=== PATIENT | female | born 1995 | race Caucasian/White ===

== ENCOUNTER 2022-07-28 17:41 | Emergency (ER) | payer MEDICAID ==
[2022-07-28 18:18] VITALS: BP 135/98; PULSE 70; O2SAT 98
[2022-07-28] MEDS ORDERED: TORAdol 30 mg Injection IM ONE (18:50)
--- NOTE | 2022-07-28 18:52 | ERPHSYRPT ---
- History of Present Illness Time Seen by Provider: 07/28/22 18:52 Source: patient Exam Limitations: no limitations Patient Subjective Stated Complaint: pt here for pain to left hand, she states she smashed in sunday with steel, was seen at [facility] last night and carlos manuelto guillermina ay, was given splint and rx, she states pain is worse and she can not move hand Triage Nursing Assessment: pt alert, walked in, resp easy, crying off and on, has redness and swelling to left. middle finger, no splint to finger, has strong radial pulse. nail beds pink Physician History: Patient presents for pain to left hand, she states she smashed in Sunday with steel, was seen at [place] last night and [facility] today, was given splint a nd abx, she states pain is worse and she can not move hand. Patient reports that her index finger has become more swollen, red, warm and extremely painful. The finger is painful to touch or move. She reports that after the injury there was a small shard of steel stuck in her finger that she removed. Occurred: days ago (2) Method of Injury: other (crush injury) Quality: constant Severity of Pain-Max: severe Severity of Pain-Current: severe Extremities Pain Location: 2nd finger: left Modifying Factors: Improves With: nothing. Worsens With: movement Associated Symptoms: none Allergies/Adverse Reactions: ketamine Allergy (Verified 07/28/22 17:53) Hx Tetanus, Diphtheria Vaccination/Date Given: Yes Hx Influenza Vaccination/Date Given: No Hx Pneumococcal Vaccination/Date Given: No Immunizations Up to Date: Yes Travel Risk - International Travel Have you traveled outside of the country in past 3 weeks: No - Coronavirus Screening Are you exhibiting any of the following symptoms?: No - Vaccine Status Have you recieved a Covid-19 vaccination: No - Review of Systems Constitutional: No Symptoms Musculoskeletal: Injury, Joint Redness, Joint Pain, Joint Swelling Skin: Cellulitis Neurological: No Symptoms - Past Medical History Pertinent Past Medical History: Yes History: Other Psycho-Social History: Anxiety, Depression - Past Surgical History Past Surgical History: Yes Neuro Surgical History: Other Gastrointestinal: Appendectomy, Hernia Repair, Other Female Surgical History: Tubal Ligation Other Surgical History: EYE SURGERY - Social History Smoking Status: Current every day smoker Exposure to second hand smoke: Yes Drug Use: none Patient Lives Alone: No - Female History Hx Last Menstrual Period: now Hx Now: No - Nursing Vital Signs Nursing Vital Signs: Initial Vital Signs Pulse Rate 70 07/28/22 17:43 Respiratory Rate 18 07/28/22 17:43 Blood Pressure 135/98 07/28/22 17:43 O2 Sat by Pulse Oximetry 98 07/28/22 17:43 Pain Scale Pain Intensity 5 - Physical Exam General Appearance: severe distress Shoulder Exam: normal inspection, non-tender, no evidence of injury, normal ROM, No pain, No soft tissue tenderness, No swelling Elbow/Forearm Exam: normal inspection, non-tender, no evidence of injury, normal ROM, No pain, No soft tissue tenderness, No swelling Wrist Exam: normal inspection, non-tender, no evidence of injury, normal ROM, No abrasions, No bone tenderness, No deformity, No ecchymosis, No pain, No soft tissue tenderness, No swelling Hand Exam: ecchymosis, limited ROM, soft tissue tenderness (pain w/ flexion, TTP over flexor tendon), stiffness, swelling (2nd digit on left hand) Neuro/Tendon Exam: normal sensation, normal motor functions Mental Status Exam: alert, oriented x 3, cooperative SpO2 Interpretation: normal SpO2: 98 O2 Delivery: Room Air - Course Nursing assessment & vital signs reviewed: Yes - Radiology Exams Left Hand X-ray Interpretation: Interpreted by me, No Fracture, Other (no foreign body) Ordered Tests: Medication Summary Discontinued Medications Generic Name Dose Route Start Last Admin Trade Name Freq PRN Reason Stop Dose Admin Ceftriaxone Sodium/Dextrose 1 g in 50 mls @ 100 mls/hr 07/28/22 19:47 07/28/22 21:35 Rocephin 1 Gm-D5w 50 Ml Bag IV 07/28/22 20:16 Infused STAT STA Infusion Vancomycin HCl 1 gm in 200 mls @ 125 mls/hr 07/28/22 19:50 07/28/22 23:56 Vancomycin 1 Gram/200 Ml Bag IV 07/28/22 21:25 Infused STAT ONE Infusion Ceftriaxone Sodium/Dextrose Confirm 07/28/22 20:24 Rocephin 1 Gm-D5w 50 Ml Bag Administered 07/28/22 20:25 Dose 1 g in 50 mls @ ud IV .STK-MED ONE Vancomycin HCl Confirm 07/28/22 21:56 Vancomycin 1 Gram/200 Ml Bag Administered 07/28/22 21:57 Dose 1 gm in 200 mls @ ud IV .STK-MED ONE Ketorolac Tromethamine 60 mg 07/28/22 18:50 07/28/22 19:07 Ketorolac Tromethamine 30 Mg/Ml Inj IM 07/28/22 18:51 60 mg STAT ONE Administration Ketorolac Tromethamine Confirm 07/28/22 19:06 Ketorolac Tromethamine 30 Mg/Ml Inj Administered 07/28/22 19:07 Dose 60 mg .ROUTE .STK-MED ONE Morphine Sulfate 2 mg 07/28/22 19:51 07/28/22 20:26 Morphine Sulfate 2 Mg/Ml Inj IV 07/28/22 19:52 2 mg STAT ONE Administration Morphine Sulfate Confirm 07/28/22 20:24 Morphine Sulfate 2 Mg/Ml Inj Administered 07/28/22 20:25 Dose 2 mg .ROUTE .STK-MED ONE Morphine Sulfate 2 mg 07/28/22 23:34 07/28/22 23:50 Morphine Sulfate 2 Mg/Ml Inj IV 07/28/22 23:35 2 mg STAT ONE Administration Morphine Sulfate Confirm 07/28/22 23:48 Morphine Sulfate 2 Mg/Ml Inj Administered 07/28/22 23:49 Dose 2 mg .ROUTE .STK-MED ONE Lab/Rad Data: Laboratory Result Diagrams 07/28/22 20:55 07/28/22 20:55 Laboratory Results 07/28/22 07/28/22 07/28/22 Range/Units 20:56 20:55 20:55 WBC 12.7 H (4.0-10.5) x10^3/uL RBC 4.15 (4.1-5.4) x10^6/uL Hgb 11.6 L (12.0-16.0) g/dL Hct 35.2 (35-47) % MCV 84.8 (78-100) fL MCH 28.0 (26-32) pg MCHC 33.0 (32-36) g/dL RDW 13.1 (11.5-14.0) % Plt Count 241 (150-450) x10^3/uL MPV 9.7 (7.5-11.0) fL ESR 36 H (0-20) mm/hr Sodium 136 L (137-145) mmol/L Potassium 3.5 (3.5-5.1) mmol/L Chloride 105 (98-107) mmol/L Carbon Dioxide 22 (22-30) mmol/L Anion Gap 12.6 (5-15) MEQ/L BUN 18 H (7-17) mg/dL Creatinine 0.50 L (0.52-1.04) mg/dL Estimated GFR > 60.0 ML/MIN Glucose 111 H (74-106) mg/dL Lactic Acid 0.8 (0.4-2.0) Calcium 8.3 L (8.4-10.2) mg/dL Total Bilirubin 0.50 (0.2-1.3) mg/dL AST 21 (14-36) U/L ALT 20 (0-35) U/L Alkaline Phosphatase 88 (38-126) U/L Serum Total Protein 6.9 (6.3-8.2) g/dL Albumin 3.8 (3.5-5.0) g/dL - Progress Progress: unchanged Progress Note: Physical exam findings consistent w/ flexor tenosenovitis. There are no local hand surgeons available for surgical evaluation. Due to current bed shortage I discussed options of transfer vs d/c and proceed to ER in [place]. Patient chose to be d/c'd and proceed to ER in [place] for surgical evaluation. Patient was given Vanc/Rocephin in ER as well as Morphine and Toradol for pain control. Counseled pt/family regarding: lab results, diagnosis, need for follow-up, rad results Medical Desision Making - Diagnostic Testing Diagnostic test were ordered, analyzed, and reviewed by me: Yes Radiological Interpretation: Interpreted by me - Risk of complications The pt has a mod risk of morbidity or mortality based on: Need for prescription drug management - Departure Departure Disposition: Home Clinical Impression: Flexor tenosynovitis of finger Condition: Stable Critical Care Time: No Referrals: DOCTOR,NO FAMILY [Primary Care Provider] - Follow up/PCP as directed EUGENE YOON [NON-STAFF PHY W/O PRIVILEGES] - Follow up/PCP as directed Instructions: Tenosynovitis (DC) Additional Instructions: Patient was treated w/ IV Rocephin and Vancomycin in ED for suspected flexor tenosynovitis. There is no available hand surgeon in a a 75 mile radius. Due to current bed situation at hospitals discussed ER to ER transfer vs d/c and travel to ER in [facility] or [place] and patient chose to d/c and proceed to [facility] ER for further evaluation. Patient was given 2mg Morphine prior to d/c to help w/ pain on the way, she will be escorted by her partner.
[2022-07-28] MEDS ORDERED: TORAdol 30 mg Injection ONE (19:06)
[2022-07-28] MEDS ORDERED: ROCEPHIN 1 Gm-D5w 50 ml Bag** 1 G/50 ML IVPB IV STA (19:47)
[2022-07-28] MEDS ORDERED: VANCOMYCIN 1 GRAM/200 ML BAG 1 GM/200 ML PIGGYBACK IV ONE ×2 (19:50→21:56)
[2022-07-28] MEDS ORDERED: MORPHINE SULFATE 2 MG INJ IV ONE ×2 (19:51→23:34)
[2022-07-28] MEDS ORDERED: MORPHINE SULFATE 2 MG INJ ONE ×2 (20:24→23:48)
[2022-07-28] MEDS ORDERED: ROCEPHIN 1 Gm-D5w 50 ml Bag** 1 G/50 ML IVPB IV ONE (20:24)
[2022-07-28 20:58] LABS: Hematocrit 35.2 % (35-47); Hemoglobin 11.6 g/dL (12.0-16.0); Mean Cell Volume 84.8 fL (78-100); Mean Platelet Volume 9.7 fL (7.5-11.0); Platelet Count 241 x10^3/uL (150-450); Red Blood Count 4.15 x10^6/uL (4.1-5.4); Red Cell Distribution Width 13.1 % (11.5-14.0); White Blood Count 12.7 x10^3/uL (4.0-10.5)
[2022-07-28 21:01] LABS: Erythrocyte Sedimentation Rate 36 mm/hr (0-20)
[2022-07-28 21:43] LABS: ALBUMIN 3.8 g/dL (3.5-5.0); ALKALINE PHOSPHATASE 88 U/L (38-126); ANION GAP 12.6 MEQ/L (5-15); BLOOD UREA NITROGEN 18 mg/dL (7-17); CHLORIDE 105 mmol/L (98-107); Calcium 8.3 mg/dL (8.4-10.2); Carbon Dioxide 22 mmol/L (22-30); EST GLOMERULAR FILTRATION RATE > 60.0 ML/MIN; Glucose 111 mg/dL (74-106); Potassium 3.5 mmol/L (3.5-5.1); SGOT/AST 21 U/L (14-36); SGPT/ALT 20 U/L (0-35); SODIUM 136 mmol/L (137-145); Total Protein 6.9 g/dL (6.3-8.2)
--- NOTE | 2022-07-28 21:52 | XRAY ---
Indication: 4th/5th finger pain following injury. Comparison: None 3 view left hand obtained. No bony, articular, or soft tissue abnormalities.
== END 2022-07-29 00:07 | disposition home or self-care (01) ==
LOC: ED 17:41
DX: M65.9 Synovitis and tenosynovitis, unspecified (principal); M79.642 Pain in left hand; Z28.310 Unvaccinated for COVID-19; Z72.0 Tobacco use
CPT/HCPCS: 36000; 36415; 73130; 80053; 83605; 85027; 85652; 96365; 96367; 96372; 96374; 96376; 99284; J0696; J1885; J2270; J3370

== ENCOUNTER 2022-12-31 20:09 | Emergency (ER) | payer MEDICAID, OTHER ==
[2022-12-31 20:26] VITALS: TEMP 98.8
[2022-12-31] MEDS ORDERED: Sodium Chloride 0.9% 1000 ML 1,000 ML IV STA (20:58)
--- NOTE | 2022-12-31 20:58 | ERPHSYRPT ---
- History of Present Illness Time Seen by Provider: 12/31/22 20:17 Historian: patient Exam Limitations: no limitations Patient Subjective Stated Complaint: pt states "my chest started hurting yesterday when I woke up. It's like a ripping feeling." Triage Nursing Assessment: pt ambulatory to bed by self, pt alert and oriented x3, skin pink, warm, and clammy, pt c/o R sided chest pain that radiates to the center of the chest, pt has had a hx of pericarditis, no fever noted, pt denies cough or any other symptoms at this time Physician History: Patient had a 1.5 day history of right-sided tearing sharp pain that radiates to the right side of her neck. She has a past history of pericarditis approximately 2-1/2 years ago. She has not been evaluated or treated by anyone prior to coming into the emergency room this evening. Timing/Duration: yesterday Activities at Onset: none Quality: sharpness, stabbing Location: other (right sided) Chest Pain Radiation: neck Severity of Pain-Max: severe Severity of Pain-Current: moderate Modifying Factors: Improves With: nothing Associated Symptoms: abdominal pain (upper), hurts to breathe, No nausea, No vomiting, No palpitations, No heartburn, No shortness of breath, No cough, No diaphoresis, No chills, No fever, No fatigue, No weakness, No syncope Prior Chest Pain/Cardiac Workup: non-cardiac (patient has a history of p ericarditis) Nitro Today/Relief: no nitro taken today Aspirin Treatment Today: no aspirin today Allergies/Adverse Reactions: cinnamon Allergy (Severe, Verified 12/31/22 20:16) ketamine Allergy (Severe, Verified 12/31/22 20:16) Home Medications: Pregabalin 50 mg [Lyrica 50MG] 50 mg PO DAILY 12/31/22 [History] Hx Tetanus, Diphtheria Vaccination/Date Given: Yes Hx Influenza Vaccination/Date Given: Yes Hx Pneumococcal Vaccination/Date Given: No Travel Risk - International Travel Have you traveled outside of the country in past 3 weeks: No - Coronavirus Screening Are you exhibiting any of the following symptoms?: No Close contact with a COVID-19 positive Pt in past 14-21 Days: No - Vaccine Status Have you recieved a Covid-19 vaccination: No - Review of Systems Constitutional: No Fever, No Chills Eyes: No Symptoms, No Discharge, No Eye Pain, No Eye Redness Ears, Nose, & Throat: No Symptoms, No Ear Discharge, No Nose Congestion, No Nose Discharge, No Sinus Drainage, No Throat Pain, No Throat Swelling Respiratory: No Cough, No Dyspnea Cardiac: Chest Pain, No Edema, No Syncope Abdominal/Gastrointestinal: No Abdominal Pain, No Nausea, No Vomiting, No Diarrhea Genitourinary Symptoms: No Dysuria Musculoskeletal: No Back Pain, No Neck Pain Skin: No Rash Neurological: No Dizziness, No Focal Weakness, No Sensory Changes Psychological: No Symptoms Endocrine: No Symptoms All Other Systems: Reviewed and Negative - Past Medical History Pertinent Past Medical History: Yes Neurological History: No Pertinent History ENT History: No Pertinent History Cardiac History: No Pertinent History Respiratory History: No Pertinent History Endocrine Medical History: No Pertinent History History: Other Psycho-Social History: Anxiety, Depression - Past Surgical History Past Surgical History: Yes Neuro Surgical History: Other Gastrointestinal: Appendectomy, Hernia Repair, Other Musculoskeletal: Orthopedic Surgery Female Surgical History: Tubal Ligation Other Surgical History: EYE SURGERY, finger surgery - Social History Smoking Status: Former smoker Exposure to second hand smoke: Yes Drug Use: marijuana Patient Lives Alone: No - Female History Hx Last Menstrual Period: tubal Hx Now: No - Nursing Vital Signs Nursing Vital Signs: Initial Vital Signs Temperature 98.8 F 12/31/22 20:17 Pulse Rate 100 H 12/31/22 20:17 Respiratory Rate 22 12/31/22 20:17 Blood Pressure 119/75 12/31/22 20:17 O2 Sat by Pulse Oximetry 97 12/31/22 20:17 Pain Scale Pain Intensity 7 - Physical Exam General Appearance: no apparent distress, alert Eye Exam: PERRL/EOMI, eyes nml inspection Ears, Nose, Throat Exam: normal ENT inspection, TMs normal, pharynx normal, moist mucous membranes Neck Exam: normal inspection, non-tender, supple, full range of motion Respiratory Exam: normal breath sounds, lungs clear, No respiratory distress Cardiovascular Exam: regular rate/rhythm, normal heart sounds, normal peripheral pulses, capillary refill <2 sec, No murmur, No friction rub Gastrointestinal/Abdomen Exam: soft, No tenderness, No mass Back Exam: normal inspection, No CVA tenderness, No vertebral tenderness Extremity Exam: normal inspection, normal range of motion Neurologic Exam: alert, oriented x 3, cooperative, normal mood/affect, sensation nml, No motor deficits Skin Exam: normal color, warm, dry, No rash, No petechiae, No cyanosis, No jaundice SpO2 Interpretation: normal SpO2: 97 O2 Delivery: Room Air - Course Nursing assessment & vital signs reviewed: Yes EKG Interpreted by Me: RATE (102), Sinus Tach, NORMAL AXIS, NORMAL INTERVALS, NORMAL QRS, NORMAL ST-T, Other (Negative previous EKG for comparison; overall impression: Sinus tachycardia, otherwise normal EKG) - CT Exams Chest CT Interpretation: Tele-radiologist Report, Other (Overall impression:1: No evidence of any filling defect in the main pulmonary trunk, bilateral main pulmonary arteries, segmental arteries and subsegmental arteries suggest acute or chronic pulmonary embolism; 2. Atelectasis; no pericardial effusion) Ordered Tests: Active Orders 24 hr Category Date Time Status EKG-ER Only STAT Care 12/31/22 20:46 Active IV Insertion STAT Care 12/31/22 20:46 Active CHEST WITH CONTRAST [CT] Stat Exams 12/31/22 20:47 Completed CBC W DIFF Stat Lab 12/31/22 20:56 Completed CMP Stat Lab 12/31/22 20:56 Completed CULTURE,URINE Stat Lab 12/31/22 21:35 Received HCG QUALITATIVE, URINE Stat Lab 12/31/22 21:30 Completed LIPASE Stat Lab 12/31/22 20:56 Completed MAGNESIUM Stat Lab 12/31/22 20:56 Completed NT PRO BNPII Stat Lab 12/31/22 20:56 Completed PROTIME WITH INR Stat Lab 12/31/22 20:56 Completed TROPONIN Q4H Lab 12/31/22 20:56 Completed TROPONIN Q4H Lab 01/01/23 01:00 Ordered TROPONIN Q4H Lab 01/01/23 05:00 Ordered UA W/RFX UR CULTURE Stat Lab 12/31/22 21:35 Completed Urine Triage Profile Stat Lab 12/31/22 21:30 Completed Medication Summary Discontinued Medications Generic Name Dose Route Start Last Admin Trade Name Freq PRN Reason Stop Dose Admin Sodium Chloride 1,000 mls @ 999 mls/hr 12/31/22 20:58 12/31/22 22:44 Sodium Chloride 0.9% 1000 Ml IV 08/20/23 21:58 Infused .Q1H1M STA Infusion Sodium Chloride Confirm 12/31/22 21:25 Sodium Chloride 0.9% 1000 Ml Administered 12/31/22 21:26 Dose 1,000 mls @ .ROUTE .[facility] Lab/Rad Data: Laboratory Result Diagrams 12/31/22 20:56 12/31/22 20:56 Laboratory Results 12/31/22 12/31/22 12/31/22 Range/Units 21:35 21:30 21:30 WBC (4.0-10.5) x10^3/uL RBC (4.1-5.4) x10^6/uL Hgb (12.0-16.0) g/dL Hct (35-47) % MCV (78-100) fL MCH (26-32) pg MCHC (32-36) g/dL RDW (11.5-14.0) % Plt Count (150-450) x10^3/uL MPV (7.5-11.0) fL Gran % (36.0-66.0) % Immature Gran % (Auto) (0.00-0.4) % Nucleat RBC Rel Count (0.00-0.1) % Eos # (Auto) (0-0.5) x10^3/uL Immature Gran # (Auto) (0.00-0.03) x10^3u/L Absolute Lymphs (auto) (1.0-4.6) x10^3/uL Absolute Monos (auto) (0.0-1.3) x10^3/uL Absolute Nucleated RBC (0.00-0.01) x10^3u/L Lymphocytes % (24.0-44.0) % Monocytes % (0.0-12.0) % Eosinophils % (0.00-5.0) % Basophils % (0.0-0.4) % Absolute Granulocytes (1.4-6.9) x10^3/uL Basophils # (0-0.4) x10^3/uL PT (9.4-12.5) SECONDS INR (0.8-3.0) Sodium (137-145) mmol/L Potassium (3.5-5.1) mmol/L Chloride (98-107) mmol/L Carbon Dioxide (22-30) mmol/L Anion Gap (5-15) MEQ/L BUN (7-17) mg/dL Creatinine (0.52-1.04) mg/dL Estimated GFR ML/MIN Glucose (74-106) mg/dL Calcium (8.4-10.2) mg/dL Magnesium (1.6-2.3) mg/dL Total Bilirubin (0.2-1.3) mg/dL AST (14-36) U/L ALT (0-35) U/L Alkaline Phosphatase (38-126) U/L Troponin I (0.000-0.034) ng/mL NT-Pro-B Natriuret Pep (<300) pg/mL Serum Total Protein (6.3-8.2) g/dL Albumin (3.5-5.0) g/dL Lipase (23-300) U/L Urine Color Yellow (Yellow) Urine Appearance Cloudy A (Clear) Urine pH 6.5 (4.6-8.0) Ur Specific [place] >=1.030 A (1.005-1.030) Urine Protein Negative (Negative) Urine Glucose (UA) Negative (Negative) mg/dL Urine Ketones Negative (Negative) Urine Blood Negative (Negative) Urine Nitrite Negative (Negative) Urine Bilirubin Negative (Negative) Urine Urobilinogen 1.0 A (0.2) mg/dL Ur Leukocyte Esterase Small A (Negative) U Hyaline Cast (Auto) NONE SEEN (0-2) /LPF Urine Microscopic RBC 0-2 (0-5) /HPF Urine Microscopic WBC 6-10 A (0-5) /HPF Ur Epithelial Cells Few (None Seen) /HPF Urine Bacteria Rare A (None Seen) /HPF Urine Culture Reflexed YES (NO) Urine HCG, Qual NEGATIVE (NEGATIVE) Urine Opiates Level NEGATIVE (NEGATIVE) Ur Methadone NEGATIVE (NEGATIVE) Urine Barbiturates NEGATIVE (NEGATIVE) Ur Phencyclidine (PCP) NEGATIVE (NEGATIVE) Urine Amphetamine NEGATIVE (NEGATIVE) U Benzodiazepine Level NEGATIVE (NEGATIVE) Urine Cocaine NEGATIVE (NEGATIVE) Urine Marijuana (THC) NEGATIVE (NEGATIVE) 12/31/22 12/31/22 12/31/22 Range/Units 20:56 20:56 20:56 WBC (4.0-10.5) x10^3/uL RBC (4.1-5.4) x10^6/uL Hgb (12.0-16.0) g/dL Hct (35-47) % MCV (78-100) fL MCH (26-32) pg MCHC (32-36) g/dL RDW (11.5-14.0) % Plt Count (150-450) x10^3/uL MPV (7.5-11.0) fL Gran % (36.0-66.0) % Immature Gran % (Auto) (0.00-0.4) % Nucleat RBC Rel Count (0.00-0.1) % Eos # (Auto) (0-0.5) x10^3/uL Immature Gran # (Auto) (0.00-0.03) x10^3u/L Absolute Lymphs (auto) (1.0-4.6) x10^3/uL Absolute Monos (auto) (0.0-1.3) x10^3/uL Absolute Nucleated RBC (0.00-0.01) x10^3u/L Lymphocytes % (24.0-44.0) % Monocytes % (0.0-12.0) % Eosinophils % (0.00-5.0) % Basophils % (0.0-0.4) % Absolute Granulocytes (1.4-6.9) x10^3/uL Basophils # (0-0.4) x10^3/uL PT 11.1 (9.4-12.5) SECONDS INR 1.02 (0.8-3.0) Sodium 138 (137-145) mmol/L Potassium 3.9 (3.5-5.1) mmol/L Chloride 104 (98-107) mmol/L Carbon Dioxide 21 L (22-30) mmol/L Anion Gap 17.4 H (5-15) MEQ/L BUN 14 (7-17) mg/dL Creatinine 0.76 (0.52-1.04) mg/dL Estimated GFR > 60.0 ML/MIN Glucose 95 (74-106) mg/dL Calcium 9.1 (8.4-10.2) mg/dL Magnesium 1.9 (1.6-2.3) mg/dL Total Bilirubin 0.30 (0.2-1.3) mg/dL AST 20 (14-36) U/L ALT 47 H (0-35) U/L Alkaline Phosphatase 82 (38-126) U/L Troponin I < 0.012 (0.000-0.034) ng/mL NT-Pro-B Natriuret Pep < 20.0 (<300) pg/mL Serum Total Protein 7.1 (6.3-8.2) g/dL Albumin 4.1 (3.5-5.0) g/dL Lipase 63 (23-300) U/L Urine Color (Yellow) Urine Appearance (Clear) Urine pH (4.6-8.0) Ur Specific [place] (1.005-1.030) Urine Protein (Negative) Urine Glucose (UA) (Negative) mg/dL Urine Ketones (Negative) Urine Blood (Negative) Urine Nitrite (Negative) Urine Bilirubin (Negative) Urine Urobilinogen (0.2) mg/dL Ur Leukocyte Esterase (Negative) U Hyaline Cast (Auto) (0-2) /LPF Urine Microscopic RBC (0-5) /HPF Urine Microscopic WBC (0-5) /HPF Ur Epithelial Cells (None Seen) /HPF Urine Bacteria (None Seen) /HPF Urine Culture Reflexed (NO) Urine HCG, Qual (NEGATIVE) Urine Opiates Level (NEGATIVE) Ur Methadone (NEGATIVE) Urine Barbiturates (NEGATIVE) Ur Phencyclidine (PCP) (NEGATIVE) Urine Amphetamine (NEGATIVE) U Benzodiazepine Level (NEGATIVE) Urine Cocaine (NEGATIVE) Urine Marijuana (THC) (NEGATIVE) 12/31/22 Range/Units 20:56 WBC 8.7 (4.0-10.5) x10^3/uL RBC 4.45 (4.1-5.4) x10^6/uL Hgb 12.3 (12.0-16.0) g/dL Hct 37.2 (35-47) % MCV 83.6 (78-100) fL MCH 27.6 (26-32) pg MCHC 33.1 (32-36) g/dL RDW 13.3 (11.5-14.0) % Plt Count 277 (150-450) x10^3/uL MPV 10.3 (7.5-11.0) fL Gran % 59.6 (36.0-66.0) % Immature Gran % (Auto) 0.3 (0.00-0.4) % Nucleat RBC Rel Count 0.0 (0.00-0.1) % Eos # (Auto) 0.24 (0-0.5) x10^3/uL Immature Gran # (Auto) 0.03 (0.00-0.03) x10^3u/L Absolute Lymphs (auto) 2.60 (1.0-4.6) x10^3/uL Absolute Monos (auto) 0.59 (0.0-1.3) x10^3/uL Absolute Nucleated RBC 0.00 (0.00-0.01) x10^3u/L Lymphocytes % 30.0 (24.0-44.0) % Monocytes % 6.8 (0.0-12.0) % Eosinophils % 2.8 (0.00-5.0) % Basophils % 0.5 (0.0-0.4) % Absolute Granulocytes 5.17 (1.4-6.9) x10^3/uL Basophils # 0.04 (0-0.4) x10^3/uL PT (9.4-12.5) SECONDS INR (0.8-3.0) Sodium (137-145) mmol/L Potassium (3.5-5.1) mmol/L Chloride (98-107) mmol/L Carbon Dioxide (22-30) mmol/L Anion Gap (5-15) MEQ/L BUN (7-17) mg/dL Creatinine (0.52-1.04) mg/dL Estimated GFR ML/MIN Glucose (74-106) mg/dL Calcium (8.4-10.2) mg/dL Magnesium (1.6-2.3) mg/dL Total Bilirubin (0.2-1.3) mg/dL AST (14-36) U/L ALT (0-35) U/L Alkaline Phosphatase (38-126) U/L Troponin I (0.000-0.034) ng/mL NT-Pro-B Natriuret Pep (<300) pg/mL Serum Total Protein (6.3-8.2) g/dL Albumin (3.5-5.0) g/dL Lipase (23-300) U/L Urine Color (Yellow) Urine Appearance (Clear) Urine pH (4.6-8.0) Ur Specific [place] (1.005-1.030) Urine Protein (Negative) Urine Glucose (UA) (Negative) mg/dL Urine Ketones (Negative) Urine Blood (Negative) Urine Nitrite (Negative) Urine Bilirubin (Negative) Urine Urobilinogen (0.2) mg/dL Ur Leukocyte Esterase (Negative) U Hyaline Cast (Auto) (0-2) /LPF Urine Microscopic RBC (0-5) /HPF Urine Microscopic WBC (0-5) /HPF Ur Epithelial Cells (None Seen) /HPF Urine Bacteria (None Seen) /HPF Urine Culture Reflexed (NO) Urine HCG, Qual (NEGATIVE) Urine Opiates Level (NEGATIVE) Ur Methadone (NEGATIVE) Urine Barbiturates (NEGATIVE) Ur Phencyclidine (PCP) (NEGATIVE) Urine Amphetamine (NEGATIVE) U Benzodiazepine Level (NEGATIVE) Urine Cocaine (NEGATIVE) Urine Marijuana (THC) (NEGATIVE) - Progress Progress: improved, re-examined Air Movement: good Progress Note: 12/31/22 23:00 Patient not having any type of distress or pain at this time and I reviewed with her waiting for the CT scan results 12/31/22 23:55 Patient has no chest pain or any type of distress at this time and I reviewed with her her CTA results of her chest 01/01/23 00:10 Patient is a 27-year-old female comes emergency room due to having right-sided chest pain is pleuritic type nature and she is concerned that may be return of her pericarditis she had 2 and half years ago. Secondary work-up showed negative troponin, negative EKG for any acute findings, and negative upper GI labs for any referred pain to that area, so with her symptoms, risk factors, CTA of the chest was performed to look at the pulmonary arteries as well as the aorta as well as the pericardial sac and there is no significant abnormalities found per radiologist interpretation of any pulmonary emboli, aortic disease or pericardial effusion or any other significant abnormalities outside of atelectasis. Patient this time will be discharged home to follow-up with her primary care provider on 01/01/2023 to continue valuation of her symptoms. Patient return back to the nearest emergency room if she has any fever, new hemoptysis, worsening type of chest pain, new back pain, new type of chest pain, new weakness numbness, numbness or tingling upper extremities, new abdominal pain, new melena or hematochezia, new dizziness, new syncopal event, new weakness in the extremities or loss sensation in the extremities or loss of coordination or any other concerning signs or symptoms that were not present at today's emergency room visit for immediate reevaluation in the nearest emergency room. Patient is time to be discharged home to follow-up as an outpatient she is at low risk for any cardiac, pulmonary, vascular, infectious or referred upper GI issues causing her symptoms at this time. Counseled pt/family regarding: lab results, diagnosis, need for follow-up, rad results - Departure Departure Disposition: Home Clinical Impression: Pleuritic chest pain, Right-sided chest pain Condition: Good Critical Care Time: No Referrals: DOCTOR,NO FAMILY [Primary Care Provider] - Follow up/PCP as directed MADDIE TRAYLOR NP [NON-STAFF PHY W/O PRIVILEGES] - Follow up with PCP 1 day Instructions: Chest Pain (DC) Additional Instructions: Return back to the nearest emergency room if you have any worsening chest pain, new shortness of breath, new coughing up blood, new back pain, new numbness, tingling or weakness in the upper extremities at any time, new fever, new weakness, new abdominal pain, new fever or any other concerning signs or symptoms that were not present at today's emergency room visit for immediate reevaluation in the nearest emergency department Forms: Work/School Release Form
[2022-12-31 20:59] LABS: Absolute Neutrophil Ct (ANC) 5.17 x10^3/uL (1.4-6.9); BASOPHIL % 0.5 % (0.0-0.4); Basophil (Absolute #) 0.04 x10^3/uL (0-0.4); Eosinophil % 2.8 % (0.00-5.0); Eosinophil (Absolute #) 0.24 x10^3/uL (0-0.5); Hematocrit 37.2 % (35-47); Hemoglobin 12.3 g/dL (12.0-16.0); IMMATURE GRAN # 0.03 x10^3u/L (0.00-0.03); IMMATURE GRAN % 0.3 % (0.00-0.4); Mean Cell Volume 83.6 fL (78-100); Mean Corpuscular Hemoglobin 27.6 pg (26-32); Mean Corpuscular Hgb Concent. 33.1 g/dL (32-36); Mean Platelet Volume 10.3 fL (7.5-11.0); Monocyte (Absolute #) 0.59 x10^3/uL (0.0-1.3); Monocytes % 6.8 % (0.0-12.0); Neutrophil % 59.6 % (36.0-66.0); Platelet Count 277 x10^3/uL (150-450); Red Blood Count 4.45 x10^6/uL (4.1-5.4); Red Cell Distribution Width 13.3 % (11.5-14.0); White Blood Count 8.7 x10^3/uL (4.0-10.5)
[2022-12-31 21:13] LABS: ALBUMIN 4.1 g/dL (3.5-5.0); ALKALINE PHOSPHATASE 82 U/L (38-126); ANION GAP 17.4 MEQ/L (5-15); BLOOD UREA NITROGEN 14 mg/dL (7-17); CHLORIDE 104 mmol/L (98-107); Calcium 9.1 mg/dL (8.4-10.2); Carbon Dioxide 21 mmol/L (22-30); Creatinine 1 0.76 mg/dL (0.52-1.04); EST GLOMERULAR FILTRATION RATE > 60.0 ML/MIN; Glucose 95 mg/dL (74-106); INR 1.02 (0.8-3.0); LIPASE 63 U/L (23-300); MAGNESIUM 1.9 mg/dL (1.6-2.3); PROTIME 11.1 SECONDS (9.4-12.5); Potassium 3.9 mmol/L (3.5-5.1); SGOT/AST 20 U/L (14-36); SGPT/ALT 47 U/L (0-35); SODIUM 138 mmol/L (137-145); Total Protein 7.1 g/dL (6.3-8.2)
[2022-12-31 21:24] LABS: NT PRO BNPII < 20.0 pg/mL (<300); TROPONIN < 0.012 ng/mL (0.000-0.034)
[2022-12-31] MEDS ORDERED: Sodium Chloride 0.9% 1000 ML 1,000 ML ONE (21:25)
[2022-12-31 21:32] VITALS: O2SAT 97
[2022-12-31 21:48] LABS: HCG URINE TEST NEGATIVE (NEGATIVE)
[2022-12-31 21:53] LABS: Appearance Cloudy (Clear); Bacteria Rare /HPF (None Seen); Bilirubin Negative (Negative); Blood Negative (Negative); Epithelial Cells Few /HPF (None Seen); Glucose, Urine Negative (Negative); Hyaline Casts NONE SEEN /LPF (0-2); Ketones Negative (Negative); Leukocyte Esterase Small (Negative); Nitrite Negative (Negative); Ph 6.5 (4.6-8.0); Protein,Urine Dip Negative (Negative); RBC 0-2 /HPF (0-5); Specific Gravity >=1.030 (1.005-1.030)
[2022-12-31 22:00] LABS: ADD URINE CULTURE? YES (NO)
[2022-12-31 22:05] LABS: Amphetamine,Urine NEGATIVE (NEGATIVE); Barbiturate,Urine NEGATIVE (NEGATIVE); Benzodiazepine,Urine NEGATIVE (NEGATIVE); Cocaine,Urine NEGATIVE (NEGATIVE); Methadone,Urine NEGATIVE (NEGATIVE); Opiate,Urine NEGATIVE (NEGATIVE); PCP,Urine NEGATIVE (NEGATIVE); THC,Urine NEGATIVE (NEGATIVE)
--- NOTE | 2022-12-31 23:49 | XRAY ---
CLINICAL HISTORY:Right sided pleuritic chest pain COMPARISON:None. TECHNIQUE:Contiguous 3.[address] images of the chest were acquired with the administration of intravenous contrast with PE protocol. Coronal and sagittal reconstructions were obtained.; DLP: 636.61 mGy*cm. CTDI Vol: 38 mGy. FINDINGS: No evidence of any filling defect in the main pulmonary trunk, bilateral main pulmonary arteries, segmental arteries, and subsegmental arteries to suggest acute or chronic pulmonary embolism. The scanned pulmonary parenchyma shows no definite consolidative lesions. No free or encysted pleural effusion. Minimal subpleural atelectasis is seen involving the apical and basal regions. Heart size is normal, and there is no pericardial effusion. No pathologically enlarged mediastinal, hilar, or axillary lymph node was identified. There is no definite mass lesion in the chest wall. No bony pathology was seen. The scanned upper abdomen is unremarkable. IMPRESSION: 1. No evidence of any filling defect in the main pulmonary trunk, bilateral main pulmonary arteries, segmental arteries, and subsegmental arteries to suggest acute or chronic pulmonary embolism. 2. Minimal subpleural atelectasis is seen involving the apical and basal regions. No other significant pulmonary or mediastinal pathology was seen. Electronically Signed by: Elicia Loomis MD. (12/31/2022 22:47:47 [employer])
[2023-01-01 00:55] VITALS: BP 116/70; PULSE 72; RESP 18
== END 2023-01-01 00:35 | disposition home or self-care (01) ==
LOC: ED 20:09
DX: R07.81 Pleurodynia (principal); Z79.899 Other long term (current) drug therapy; Z28.310 Unvaccinated for COVID-19
CPT/HCPCS: 36000; 36415; 71260; 80053; 80307; 81001; 81025; 83690; 83735; 83880; 84484; 85025; 85610; 87086; 93005; 99284

== ENCOUNTER 2023-03-05 23:38 | Emergency (ER) | payer OTHER ==
[2023-03-06] MEDS ORDERED: TORAdol 30 mg Injection IM ONE (00:07)
[2023-03-06 00:11] VITALS: TEMP 97.8; O2SAT 98
[2023-03-06] MEDS ORDERED: TORAdol 30 mg Injection ONE (00:34)
--- NOTE | 2023-03-06 00:35 | ERPHSYRPT ---
- History of Present Illness Source: patient Exam Limitations: no limitations Patient Subjective Stated Complaint: pt states she fell on her tailbone and is having increased pain since. states she is having sharp shooting pains when sitting or bending over. Triage Nursing Assessment: pt alert and oriented, answers questions approp. pt ambulates into room with steady gait noted. respirations nonlabored. skin warm and dry. pt reports tenderness to coccyx area with palpation or sitting. Physician History: 28 yo WF fell 2 days ago onto friend's steel toe shoe and now complains of coccyx pain rated an 8 on scale. Pt denies other injuries at this time. Timing/Duration: day(s) (2 days ago) Method of Injury: fall Quality: sharp, aching Back Pain Location: coccyx Severity of Pain-Max: severe Severity of Pain-Current: severe Modifying Factors: Improves With: other (Sitting) Associated Symptoms: denies symptoms Previous symptoms: no prior history Allergies/Adverse Reactions: cinnamon Allergy (Severe, Verified 03/05/23 23:58) ketamine Allergy (Severe, Verified 03/05/23 23:58) Home Medications: Pregabalin 50 mg [Lyrica 50MG] 50 mg PO DAILY 12/31/22 [History] Hx Tetanus, Diphtheria Vaccination/Date Given: Yes Hx Influenza Vaccination/Date Given: No Hx Pneumococcal Vaccination/Date Given: No Immunizations Up to Date: Yes Travel Risk - International Travel Have you traveled outside of the country in past 3 weeks: No - Coronavirus Screening Are you exhibiting any of the following symptoms?: No Close contact with a COVID-19 positive Pt in past 14-21 Days: No - Vaccine Status Have you recieved a Covid-19 vaccination: No Pharmaceutical Assistant: Unknown - Vaccination Dates Dates if Unknown: 2021 - Review of Systems Constitutional: No Symptoms Eyes: No Symptoms Ears, Nose, & Throat: No Symptoms Respiratory: No Symptoms Cardiac: No Symptoms Abdominal/Gastrointestinal: No Symptoms Genitourinary Symptoms: No Symptoms Skin: No Symptoms Neurological: No Symptoms Psychological: No Symptoms Endocrine: No Symptoms Hematologic/Lymphatic: No Symptoms Immunological/Allergic: No Symptoms - Past Medical History Pertinent Past Medical History: Yes Neurological History: No Pertinent History ENT History: No Pertinent History Cardiac History: No Pertinent History Respiratory History: No Pertinent History Endocrine Medical History: No Pertinent History History: Other Psycho-Social History: Anxiety, Bipolar, Depression - Past Surgical History Past Surgical History: Yes Neuro Surgical History: Other Gastrointestinal: Appendectomy, Hernia Repair, Other Musculoskeletal: Orthopedic Surgery Female Surgical History: Tubal Ligation Other Surgical History: EYE SURGERY, finger surgery x2 - Social History Smoking Status: Former smoker Exposure to second hand smoke: Yes Drug Use: marijuana Patient Lives Alone: No - Female History Hx Last Menstrual Period: current Hx Now: No - Nursing Vital Signs Nursing Vital Signs: Initial Vital Signs Temperature 97.8 F 03/05/23 23:43 Pulse Rate 93 H 03/05/23 23:43 Respiratory Rate 18 03/05/23 23:43 Blood Pressure 123/75 03/05/23 23:43 O2 Sat by Pulse Oximetry 98 03/05/23 23:43 Pain Scale Pain Intensity 8 WNL - Physical Exam General Appearance: no apparent distress Eye Exam: PERRL/EOMI, eyes nml inspection Ears, Nose, Throat Exam: normal ENT inspection, TMs normal, pharynx normal, moist mucous membranes Neck Exam: normal inspection, non-tender, supple, full range of motion, No meningismus, No mass, No Brudzinski, No Kernig's Respiratory Exam: normal breath sounds, lungs clear, airway intact Cardiovascular Exam: regular rate/rhythm, normal heart sounds, normal peripheral pulses, capillary refill <2 sec, No murmur Gastrointestinal Exam: soft, normal bowel sounds, No tenderness Back Exam: other (Inferior coccyx area TTP) Extremity Exam: normal inspection, normal range of motion, pelvis stable Peripheral Pulses: carotid (R): 2+, carotid (L): 2+ Neurologic Exam: alert, oriented x 3, 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, 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, normal mood/affect, nml cerebellar function, nml station & gait, sensation nml Skin Exam: normal color, warm, dry Lymphatic Exam: No adenopathy SpO2 Interpretation: normal SpO2: 98 O2 Delivery: Room Air - Course Nursing assessment & vital signs reviewed: Yes - Radiology Exams Other X-ray Interpretation: Interpreted by me (Coccyx-possible distal coccyx fx) Ordered Tests: Active Orders 24 hr Category Date Time Status SACRUM AND COCCYX Stat Exams 03/06/23 00:07 Taken Medication Summary Discontinued Medications Generic Name Dose Route Start Last Admin Trade Name Freq PRN Reason Stop Dose Admin Ketorolac Tromethamine 30 mg 03/06/23 00:07 03/06/23 00:35 Ketorolac Tromethamine 30 Mg/Ml Inj IM 03/06/23 00:08 30 mg STAT ONE Administration Ketorolac Tromethamine Confirm 03/06/23 00:34 Ketorolac Tromethamine 30 Mg/Ml Inj Administered 03/06/23 00:35 Dose 30 mg .ROUTE .[facility] - Progress Progress Note: 03/06/23 00:50 Nursing note and vital signs reviewed No food or housing insecurities noted 30mg IM Toradol sacral-coccygeal XR read in ER w possible distal coccyx fx Counseled pt/family regarding: diagnosis, need for follow-up, rad results Medical Desision Making - Diagnostic Testing Radiological Interpretation: Interpreted by me - Risk of complications The pt has a mod risk of morbidity or mortality based on: Need for prescription drug management - Departure Departure Disposition: Home Clinical Impression: Fractured coccyx Condition: Stable Critical Care Time: No Referrals: DOCTOR,NO FAMILY [Primary Care Provider] - Follow up/PCP as directed Instructions: Coccyx Fracture (DC) Additional Instructions: Donut pillow Stool softener Etodolac as needed for pain Follow up with your family MD Return to ER as needed Prescriptions: Ketorolac Trometh 10 mg Tab [TORAdol 10 MG TABLET] 10 mg PO TID PRN PRN #10 tablet PRN Reason: Pain
[2023-03-06 01:02] VITALS: BP 122/76; PULSE 84; RESP 16
--- NOTE | 2023-03-06 08:51 | XRAY ---
Indication: Pain following fall. Comparison: None 3 view sacrum/coccyx demonstrates uterine IUD, bilateral tubal ligation clips, and tampon in situ. No other bony, articular, or soft tissue abnormalities.
== END 2023-03-06 00:56 | disposition home or self-care (01) ==
LOC: ED 23:38
DX: S32.2XXA Fracture of coccyx, initial encounter for closed fracture (principal); W01.198A Fall on same level from slipping, tripping and stumbling with subsequent striking against other object, initial encounter; Z79.899 Other long term (current) drug therapy
CPT/HCPCS: 72220; 96372; 99283; J1885

== ENCOUNTER 2023-03-25 04:10 | Emergency (ER) | payer OTHER ==
[2023-03-25 04:23] VITALS: TEMP 97.6
--- NOTE | 2023-03-25 05:03 | ERPHSYRPT ---
- History of Present Illness Time Seen by Provider: 03/25/23 04:54 Source: patient Exam Limitations: no limitations Patient Subjective Stated Complaint: pt states "I was opening up a dog food can and cut it on the lid of it and can't get it to stop bleeding." Triage Nursing Assessment: pt ambulatory to bed by self with steady gait, pt alert and oriented x3, skin pwd, pt presents with a 2 cm laceration on R index finger, bleeding controlled upon arrival, after cleaning the wound it started mildly bleeding again, tetanus utd Physician History: 28 years old [id number]-vdctqbyr female presented to the ER with chief complaint of right index finger laceration accidentally while opening a dog food can. Patient reports she applied pressure but was not getting better. Mild dull aching pain. No difficulty movements of the interphalangeal joints. No numbness or tingling in the fingertip. Up-to-date with tetanus. No injury anywhere else. Patient has to 2 cm superficial laceration. Bleeding is controlled. Supe rficial oblique laceration. No obvious tendon injury. Distal neurovascular well intact. Discussed with patient about suture versus glue with Steri-Strips and she preferred to go with glue. Laceration is repaired. Recommended taking Tylenol ibuprofen as needed and outpatient follow-up. Discussed signs symptoms of worsening needing return to ER which he seems understanding. Stable for dischar ge. Allergies/Adverse Reactions: cinnamon Allergy (Severe, Verified 03/25/23 04:19) ketamine Allergy (Severe, Verified 03/25/23 04:19) latex Allergy (Intermediate, Verified 03/25/23 04:19) Hives Home Medications: No Reportable Medications [No Reported Medications] 03/16/23 [History] Hx Tetanus, Diphtheria Vaccination/Date Given: Yes Hx Influenza Vaccination/Date Given: No Hx Pneumococcal Vaccination/Date Given: No Immunizations Up to Date: Yes Travel Risk - International Travel Have you traveled outside of the country in past 3 weeks: No - Coronavirus Screening Are you exhibiting any of the following symptoms?: No Close contact with a COVID-19 positive Pt in past 14-21 Days: No - Vaccine Status Have you recieved a Covid-19 vaccination: No 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: 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 - Vaccination Dates Dates if Unknown: 2021 - Review of Systems Constitutional: No Symptoms Ears, Nose, & Throat: No Symptoms Respiratory: No Symptoms Cardiac: No Symptoms Musculoskeletal: Injury Skin: Skin Lesions Endocrine: No Symptoms Hematologic/Lymphatic: No Symptoms - Past Medical History Pertinent Past Medical History: Yes Neurological History: Seizures ENT History: No Pertinent History Cardiac History: No Pertinent History Respiratory History: Asthma Endocrine Medical History: No Pertinent History Musculoskeletal History: No Pertinent History GI Medical History: GERD History: Other Psycho-Social History: Anxiety, Bipolar, Depression Female Reproductive Disorders: No Pertinent History - Past Surgical History Past Surgical History: Yes Neuro Surgical History: Other Gastrointestinal: Appendectomy, Hernia Repair, Other Musculoskeletal: Orthopedic Surgery Female Surgical History: Tubal Ligation Other Surgical History: finger surgery x2 - Social History Smoking Status: Former smoker Exposure to second hand smoke: Yes Drug Use: marijuana Patient Lives Alone: No - Female History Hx Last Menstrual Period: 03/25/23 Hx Now: No - Nursing Vital Signs Nursing Vital Signs: Initial Vital Signs Temperature 97.6 F 03/25/23 04:21 Pulse Rate 92 H 03/25/23 04:21 Respiratory Rate 18 03/25/23 04:21 Blood Pressure 116/90 03/25/23 04:21 O2 Sat by Pulse Oximetry 99 03/25/23 04:21 Pain Scale Pain Intensity 7 - Physical Exam General Appearance: no apparent distress Eye Exam: PERRL/EOMI Neck Exam: normal inspection, full range of motion Respiratory Exam: normal breath sounds, lungs clear Cardiovascular Exam: regular rate/rhythm, normal heart sounds Extremity Exam: normal range of motion, lacerations (2 cm superficial laceration right index finger lateral aspect around distal interphalangeal joint area. No active spurting or oozing. 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 Patient reports she applied pressure but was not getting better. Mild dull aching pain. No difficulty movements of the interphalangeal joints. No numbness or tingling in the fingertip. Up-to-date with tetanus. No injury anywhere else. Patient has to 2 cm superficial laceration. Bleeding is controlled. Superficial oblique laceration. No obvious tendon injury. Distal neurovascular well intact. Discussed with patient about suture versus glue with Steri-Strips and she preferred to go with glue. Laceration is repaired. Recommended taking Tylenol ibuprofen as needed and outpatient follow-up. Discussed signs symptoms of worsening needing return to ER which he seems understanding. Stable for discharge. Counseled pt/family regarding: diagnosis, need for follow-up Medical Desision Making - Diagnostic Testing Diagnostic test were ordered, analyzed, and reviewed by me: No - Risk of complications The pt has a mod risk of morbidity or mortality based on: Need for minor surgical intervention in patient with know risk factors - Departure Departure Disposition: Home Clinical Impression: Finger laceration Condition: Stable Critical Care Time: No Referrals: DOCTOR,NO FAMILY [Primary Care Provider] - Follow up with PCP 2 days Instructions: Laceration Repair With Glue (DC) Additional Instructions: Take Tylenol/ibuprofen as needed. Follow-up with primary care for reevaluation. Avoid exertional activities with your right hand. Return to ER for increasing pain swelling redness discharge/fever chills etc.
[2023-03-25 05:22] VITALS: BP 114/87; PULSE 71; RESP 17; O2SAT 98
== END 2023-03-25 05:22 | disposition home or self-care (01) ==
LOC: ED 04:10
DX: S61.210A Laceration without foreign body of right index finger without damage to nail, initial encounter (principal); W26.8XXA Contact with other sharp object(s), not elsewhere classified, initial encounter; Y93.K9 Activity, other involving animal care
CPT/HCPCS: 12001; 99281

== ENCOUNTER 2023-04-10 06:53 | Day surgery (SDC) | payer OTHER ==
[2023-04-10] MEDS ORDERED: Transderm Scop 1.5MG Patch TOP PRN (07:06)
[2023-04-10] MEDS ORDERED: Pepcid 20 MG VIAL IV ONE ×2 (07:06→07:11)
[2023-04-10] MEDS ORDERED: Reglan 10 MG/2 ML IV ONE (07:06)
[2023-04-10] MEDS ORDERED: Versed 2 MG/2 ML Injection IV PRN (07:06)
[2023-04-10] MEDS ORDERED: CEFAZOLIN 2 GM-D5W BAG** 2 GM/50 ML ML IV ONE (07:10)
[2023-04-10] MEDS ORDERED: Reglan 10 MG/2 ML ONE (07:11)
[2023-04-10] MEDS ORDERED: Versed 2 MG/2 ML Injection ONE (07:11)
[2023-04-10] MEDS ORDERED: Transderm Scop 1.5MG Patch ONE (07:11)
[2023-04-10] MEDS ORDERED: Lactated Ringers 1,000 ML IV ONE (07:12)
[2023-04-10 07:16] LABS: HCG URINE TEST NEGATIVE (NEGATIVE)
[2023-04-10 07:25] VITALS: RESP 16
[2023-04-10] MEDS ORDERED: CEFAZOLIN 2 GM-D5W BAG** 2 GM/50 ML ML IV SCH (07:30)
[2023-04-10] MEDS ORDERED: Lactated Ringers 1,000 ML IV SCH (07:30)
[2023-04-10 07:32] LABS: Hematocrit 40.1 % (35-47); Hemoglobin 12.7 g/dL (12.0-16.0); Mean Cell Volume 83.5 fL (78-100); Mean Corpuscular Hemoglobin 26.5 pg (26-32); Mean Corpuscular Hgb Concent. 31.7 g/dL (32-36); Mean Platelet Volume 10.3 fL (7.5-11.0); Platelet Count 272 x10^3/uL (150-450); Red Cell Distribution Width 13.4 % (11.5-14.0); White Blood Count 8.5 x10^3/uL (4.0-10.5)
[2023-04-10] MEDS ORDERED: DIPRIVAN 200 MG/20 ML IV ONE (09:15)
[2023-04-10] MEDS ORDERED: Decadron 4 MG INJ ONE (09:15)
[2023-04-10] MEDS ORDERED: Xylocaine-Mpf 2% 5 Ml Vial ONE (09:15)
[2023-04-10] MEDS ORDERED: Zofran 4 MG/2 ML VIAL ONE (09:15)
[2023-04-10] MEDS ORDERED: SUBLIMAZE 100 MCG/2 ML ONE ×2 (09:15→10:14)
[2023-04-10] MEDS ORDERED: PHENYLEPHRINE HCL ONE (09:42)
[2023-04-10] MEDS ORDERED: TORAdol 30 mg Injection ONE (09:45)
[2023-04-10 11:07] VITALS: BP 101/58; PULSE 97; TEMP 97.9; O2SAT 98
--- NOTE | 2023-04-11 08:17 | OP ---
SURGERY DATE/TIME: 04/10/2023 0923 PREOPERATIVE DIAGNOSIS: Abnormal uterine bleeding with retained IUD. POSTOPERATIVE DIAGNOSIS: Abnormal uterine bleeding with retained IUD. PROCEDURE: Hysteroscopy D&C ablation with NovaSure with removal of intrauterine device (Mirena). SURGEON: Curry Allan D.O. REMOTE MEDICAL CODER: Lilian Noland, certified surgical tech/first assistant. ANESTHESIA: General. ESTIMATED BLOOD LOSS: Minimal. COMPLICATIONS: None. INDICATIONS: The risks, benefits, indications and alternatives of the procedure were reviewed with the patient prior to procedure. The patient understood the risk of infection, bleeding, bowel injury, bladder injury, uterine perforation, pelvic infection and thromboembolic disorder associated with this surgery and desires to have this surgery as a possible means to alleviate her current medical condition. DESCRIPTION OF PROCEDURE AND FINDINGS: At this point the patient is taken to the operating room, given general sedation, placed in dorsal lithotomy position, prepped and draped in the usual sterile fashion. A weighted speculum is then placed into the patient's vagina and the anterior lip of the cervix is grasped with a single tooth tenaculum. At this point a polyp forceps was then used to blindly go inside the endocervical region and grasp the intrauterine device string which was taken place and the IUD was removed without complication. From this point, the cervix was then dilated and a 5 mm hysteroscope was then placed in through the fundus of the uterus where visualization revealed no gross abnormalities. The hysteroscope was then removed. A curette was then placed into the fundus of the uterus and curettage was performed in all quadrants of the uterus retrieving a mild to moderate amount of tissue. From this point after curettage, the NovaSure instrument was then taken towards the cervical canal taken towards the fundal region retracted approximately 1 cm with a length of 6 cm and a width of 3.2 cm and the instrument was engaged. The ablative time of 1 minute and 14 seconds. After complete ablation the instrument was then disengaged and removed from the uterine cavity without complication. From this point all instruments were then removed from the patient's vaginal region. The patient was then taken out of the dorsal lithotomy position, was taken out of anesthesia and was then taken to the recovery room in stable condition. All instruments and laps were accounted for x2.
== END 2023-04-10 11:20 | disposition home or self-care (01) ==
LOC: SDC 06:53
PROVIDERS: ATTEND Obstetrics & Gynecology
DX: N93.9 Abnormal uterine and vaginal bleeding, unspecified (principal); Z97.5 Presence of (intrauterine) contraceptive device
CPT/HCPCS: 81025; 85027; J0690; J1100; J1885; J2250; J2371; J2405; J2704; J3010; A9270-GY

== ENCOUNTER 2024-01-14 18:20 | Emergency (ER) | payer OTHER ==
[2024-01-14 18:52] VITALS: TEMP 98.3; O2SAT 100
--- NOTE | 2024-01-14 19:24 | ERPHSYRPT ---
- History of Present Illness Time Seen by Provider: 01/14/24 18:35 Source: patient Exam Limitations: no limitations Patient Subjective Stated Complaint: sore throat, head ache, rt earache, coughing stuff up for 4 days Triage Nursing Assessment: Pt brought self to the ER, vitals wnl, rates pain as 6/10, pulses normal, skin n/w/d, swelling and redness of throat, rt ear pain, coughing up thick green or yellow sputum "chunks", no difficulty breathing, doesn't appear to be in any distress Physician History: 28 years old female presented in the ER with 3 to 4 days history of sore throat with difficulty swallowing. Reports sinus/nasal congestion and minimal nonproductive cough. Patient has been taking [id number] medication with no significant relief. Subjective feeling of fever and chills. Denies any known sick contact. Allergies/Adverse Reactions: cinnamon Allergy (Severe, Verified 01/14/24 18:53) ketamine Allergy (Severe, Verified 01/14/24 18:53) latex Allergy (Intermediate, Verified 01/14/24 18:53) Hives morphine Allergy (Verified 01/14/24 18:53) ondansetron [From Zofran] Allergy (Verified 01/14/24 18:53) Home Medications: Buspirone HCl 30 mg PO BID 01/14/24 [History] Prazosin HCl 2 mg PO HS 01/14/24 [History] Propranolol HCl 10 mg PO TID 01/14/24 [History] Quetiapine Fumarate 100 mg [Seroquel 100 MG] 100 mg PO HS 01/14/24 [History] Vilazodone HCl 40 mg PO DAILY 01/14/24 [History] Hx Tetanus, Diphtheria Vaccination/Date Given: Yes Hx Influenza Vaccination/Date Given: No Hx Pneumococcal Vaccination/Date Given: No Travel Risk - International Travel Have you traveled outside of the country in past 3 weeks: No - Emerging Infectious Disease Are you exhibiting symptoms associated with any current EIDs: No - Review of Systems Constitutional: Fever, Chills Eyes: No Symptoms Ears, Nose, & Throat: Throat Pain, Throat Swelling Respiratory: Cough Cardiac: No Symptoms Abdominal/Gastrointestinal: No Symptoms Musculoskeletal: No Symptoms Skin: No Symptoms Neurological: No Symptoms Hematologic/Lymphatic: No Symptoms - Past Medical History Pertinent Past Medical History: Yes Neurological History: Seizures ENT History: No Pertinent History Cardiac History: No Pertinent History Respiratory History: Asthma Endocrine Medical History: No Pertinent History Musculoskeletal History: No Pertinent History GI Medical History: GERD History: Other Psycho-Social History: Anxiety, Bipolar, Depression Female Reproductive Disorders: No Pertinent History - Past Surgical History Past Surgical History: Yes Neuro Surgical History: Other Cardiac: No Pertinent History Respiratory: No Pertinent History Gastrointestinal: Appendectomy, Hernia Repair, Other Genitourinary: No Pertinent History Musculoskeletal: Orthopedic Surgery Female Surgical History: Tubal Ligation Other Surgical History: finger surgery x2 - Female History Hx Now: No (ablasion and tubal clamps) - Social History Smoking Status: Current every day smoker Exposure to second hand smoke: Yes Drug Use: none Patient Lives Alone: No - Social Determinants of Health Will the patient participate in the screening: Yes Do you worry about a steady place to live?: No Do you have any problems with any of the following?: No known problems In the past 12 months,have you had to go without utilities?: No Transportation Issues: No Has anyone in your support network made you feel unsafe?: No Have you or anyone in your house had to go without enough: No - Nursing Vital Signs Nursing Vital Signs: Initial Vital Signs Pulse Rate 82 01/14/24 18:21 Blood Pressure 96/61 01/14/24 18:21 O2 Sat by Pulse Oximetry 100 01/14/24 18:21 Pain Scale Pain Intensity 6 - Physical Exam General Appearance: no apparent distress, alert Eye Exam: bilateral eye: normal inspection, PERRL, EOMI Ear Exam: bilateral ear: auricle normal, canal normal, TM normal Nasal Exam: normal inspection Throat Exam: pharynx swelling, pharynx tenderness, uvula swelling Neck Exam: normal inspection, non-tender, supple, full range of motion Cardiovascular/Respiratory Exam: normal breath sounds, regular rate/rhythm Neurologic Exam: alert, oriented x 3, cooperative, 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 as 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 Skin Exam: normal color SpO2 Interpretation: normal SpO2: 100 O2 Delivery: Room Air Ordered Tests: Medication Summary Discontinued Medications Generic Name Dose Route Start Last Admin Trade Name Freq PRN Reason Stop Dose Admin Prednisone 60 mg 01/14/24 21:04 01/14/24 21:06 Prednisone 20 Mg Tablet PO 01/14/24 21:05 60 mg STAT ONE Administration Prednisone Confirm 01/14/24 21:06 Prednisone 20 Mg Tablet Administered 01/14/24 21:07 Dose 60 mg .ROUTE .STK-MED ONE Lab/Rad Data: Laboratory Results 01/14/24 Range/Units 19:49 Influenza Type A Ag NEGATIVE (NEGATIVE) Influenza Type B Ag NEGATIVE (NEGATIVE) RSV (PCR) NEGATIVE (NEGATIVE) SARS-CoV-2 (PCR) NEGATIVE (NEGATIVE) Group A Strep Antibody NOT DETECTED (NEGATIVE) - Progress Progress: unchanged Progress Note: 01/14/24 21:01 28-year-old is evaluated for sore throat and URI symptoms for the last few days. Patient is afebrile here. Lungs clear to auscultation. Has diffuse erythema of the pharynx. Has negative flu COVID RSV and strep. I believe patient's symptoms are viral etiology, given a short course of steroid. Discussed signs symptoms of worsening needing return to ER which she seems understanding. Stable for discharge. Counseled pt/family regarding: lab results, diagnosis, need for follow-up Medical Desision Making - Diagnostic Testing Diagnostic test were ordered, analyzed, and reviewed by me: Yes - Risk of complications The pt has a mod risk of morbidity or mortality based on: Need for prescription drug management - Departure Departure Disposition: Home Clinical Impression: Acute pharyngitis Condition: Stable Critical Care Time: No Referrals: DOCTOR,NO FAMILY [Primary Care Provider] - Follow up with PCP 1 day Instructions: Viral Pharyngitis (DC) Additional Instructions: TAKE TYLENOL/IBUPROFEN NEEDED, FOLLOW UP WITH PCP FOR RE EVALUATION, RETURN FOR WORRSENING Prescriptions: Prednisone 20 mg [Deltasone 20 mg] 60 mg PO DAILY 5 Days #15 tablet
[2024-01-14 20:15] LABS: Group A Strep NOT DETECTED (NEGATIVE)
[2024-01-14 20:28] LABS: INFLUENZA A NEGATIVE (NEGATIVE); INFLUENZA B NEGATIVE (NEGATIVE); RESPIRATORY SYNCTIAL VIRUS NEGATIVE (NEGATIVE); SARS-CoV-2 Xpert Express NEGATIVE (NEGATIVE)
[2024-01-14 21:03] VITALS: RESP 16
[2024-01-14] MEDS ORDERED: DELTASONE 20 MG ONE (21:06)
[2024-01-14] MEDS: DELTASONE 20 MG PO ONE (21:06)
[2024-01-14 21:47] VITALS: BP 99/68; PULSE 64
== END 2024-01-14 21:47 | disposition home or self-care (01) ==
LOC: ED 18:20
DX: J02.9 Acute pharyngitis, unspecified (principal); R09.81 Nasal congestion; R05.9 Cough, unspecified; Z79.52 Long term (current) use of systemic steroids; Z79.899 Other long term (current) drug therapy; Z72.0 Tobacco use
CPT/HCPCS: 0241U; 87651; 99283; A9270-GY

== ENCOUNTER 2024-05-25 01:16 | Emergency (ER) | payer OTHER ==
[2024-05-25 01:27] VITALS: RESP 18; TEMP 97.5
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
[2024-05-25] MEDS ORDERED: Augmentin 875-125 Tablet ONE (01:42)
[2024-05-25] MEDS: Augmentin 875-125 Tablet PO ONE (01:49)
[2024-05-25] MEDS: Tegretol 200 MG PO ONE (01:52)
[2024-05-25 02:08] VITALS: BP 105/68; PULSE 86; O2SAT 99
== END 2024-05-25 02:08 | disposition home or self-care (01) ==
LOC: ED 01:16
DX: G50.0 Trigeminal neuralgia (principal); K04.7 Periapical abscess without sinus; K08.9 Disorder of teeth and supporting structures, unspecified; R51.9 Headache, unspecified; Z79.899 Other long term (current) drug therapy; Z72.0 Tobacco use
CPT/HCPCS: 99281; 99283; A9270-GY